=== PATIENT | female | born 1950 | race African-American/Black ===

== ENCOUNTER 2021-02-03 08:52 | Day surgery (SDC) | payer MEDICARE, OTHER, MEDICAID ==
[2021-02-03] MEDS ORDERED: Lidocaine 1% MPF 2 ML VIAL ONE (09:37)
[2021-02-03] MEDS ORDERED: Lidocaine 2% MPF 10 ML AMP (For Epidural Use) ONE (11:41)
[2021-02-03] MEDS ORDERED: Fentanyl 100 MCG/2 ML VIAL ONE (12:01)
[2021-02-03] MEDS ORDERED: PROPOFOL 40 ML ONE (12:03)
[2021-02-03] MEDS ORDERED: Lidocaine 1% PF 5 ML VIAL ONE (12:39)
== END 2021-02-03 13:00 | disposition home or self-care (01) ==
LOC: CSHSDC 08:52
PROVIDERS: ATTEND Internal Medicine Gastroenterology
PROC: 0DB68ZZ Excision of Stomach, Via Natural or Artificial Opening Endoscopic (ICD-10-PCS; principal; 2021-02-03)
DX: K22.2 Esophageal obstruction (principal); K31.7 Polyp of stomach and duodenum; K44.9 Diaphragmatic hernia without obstruction or gangrene; K21.9 Gastro-esophageal reflux disease without esophagitis; I10 Essential (primary) hypertension; E78.5 Hyperlipidemia, unspecified
CPT/HCPCS: 88305; J2704; J3010

== ENCOUNTER 2021-04-21 11:45 | Outpatient (CLI) | payer MEDICARE, OTHER ==
[2021-04-21 22:50] LABS: SARS-CoV-2 PCR by NAA Not Detected (NotDetected)
== END 2021-04-21 11:46 | disposition home or self-care (01) ==
LOC: CSHLAB 11:45
PROVIDERS: ATTEND Internal Medicine Gastroenterology
DX: Z01.812 Encounter for preprocedural laboratory examination (principal); Z20.822 Contact with and (suspected) exposure to COVID-19; R13.10 Dysphagia, unspecified
CPT/HCPCS: U0003; U0005

== ENCOUNTER 2021-04-24 06:04 | Day surgery (SDC) | payer MEDICARE, OTHER ==
[2021-04-23 12:31] VITALS: BMI 27.1
[2021-04-24] MEDS ORDERED: Lidocaine 1% MPF 2 ML VIAL ONE (06:26)
[2021-04-24] MEDS ORDERED: PROPOFOL 20 ML ONE ×2 (07:19→07:56)
[2021-04-24] MEDS ORDERED: Lidocaine 1% PF 5 ML VIAL ONE (07:19)
== END 2021-04-24 08:40 | disposition home or self-care (01) ==
LOC: CSHSDC 06:04
PROVIDERS: ATTEND Internal Medicine Gastroenterology
PROC: 0DB58ZZ Excision of Esophagus, Via Natural or Artificial Opening Endoscopic (ICD-10-PCS; principal; 2021-04-24)
DX: K21.00 Gastro-esophageal reflux disease with esophagitis, without bleeding (principal); K22.2 Esophageal obstruction; K22.10 Ulcer of esophagus without bleeding; K44.9 Diaphragmatic hernia without obstruction or gangrene; K31.7 Polyp of stomach and duodenum; I10 Essential (primary) hypertension; E78.5 Hyperlipidemia, unspecified
CPT/HCPCS: 88305; J2704

== ENCOUNTER 2022-03-04 13:37 | Outpatient (CLI) | payer MEDICARE, MEDICAID | END 2022-03-04 13:38 | disposition home or self-care (01) | LOC: CSHMAMMO 13:37 | PROVIDERS: ATTEND Family Medicine | DX: Z12.31 Encounter for screening mammogram for malignant neoplasm of breast (principal); Z13.820 Encounter for screening for osteoporosis; Z78.0 Asymptomatic menopausal state | CPT/HCPCS: 77063; 77067; 77080 ==

== ENCOUNTER 2023-12-06 08:55 | Outpatient (CLI) | payer MEDICARE, MEDICAID | END 2023-12-06 08:56 | disposition home or self-care (01) | LOC: CSHMAMMO 08:55 | PROVIDERS: ATTEND Family Medicine | DX: Z12.31 Encounter for screening mammogram for malignant neoplasm of breast (principal) | CPT/HCPCS: 77063; 77067 ==